=== PATIENT | male | born 2000 | race Caucasian/White ===

== ENCOUNTER 2025-04-24 09:50 | Emergency (ER) | payer OTHER ==
[~2025-04-24] VITALS: Ht 175.3 cm; Wt 75.0 kg
[2025-04-24 09:55] VITALS: TEMP 36.9; O2SAT 100
[2025-04-24] MEDS ORDERED: CEL200 MT (10:19)
[2025-04-24 11:34] VITALS: BP 114/71; PULSE 60; RESP 18; O2SAT 100
== END 2025-04-24 11:36 | disposition home or self-care (01) ==
LOC: ER 09:50
DX: S83.91XA Sprain of unspecified site of right knee, initial encounter (principal); X58.XXXA Exposure to other specified factors, initial encounter; Y93.66 Activity, soccer; Y92.89 Other specified places as the place of occurrence of the external cause; Y99.8 Other external cause status
CPT/HCPCS: 73560; 99283